=== PATIENT | male | born 1975 | race African-American/Black ===

== ENCOUNTER 2017-10-18 19:54 | Emergency (ER) | payer SELFPAY ==
[~2017-10-18] VITALS: Ht 185.4 cm; Wt 113.9 kg
[2017-10-18] MEDS ORDERED: NKM (20:02)
[2017-10-18] MEDS ORDERED: Ketorolac 30mg Inj IM ONE (20:30)
[2017-10-18] MEDS ORDERED: Cyclobenzaprine 10mg Tab ORAL ONE (20:30)
[2017-10-18] MEDS ORDERED: IBUPROFEN600 MG ORAL (20:37)
[2017-10-18] MEDS ORDERED: CYCLOBENZAPRINE10 MG ORAL (20:37)
[2017-10-18 20:42] VITALS: BP 129/90
[2017-10-18 20:43] VITALS: BP 135/84
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
== END 2017-10-18 20:43 | disposition home or self-care (01) ==
LOC: EMR 20:18
DX: S16.1XXA Strain of muscle, fascia and tendon at neck level, initial encounter (principal); V43.52XA Car driver injured in collision with other type car in traffic accident, initial encounter; Y92.410 Unspecified street and highway as the place of occurrence of the external cause; M54.9 Dorsalgia, unspecified
CPT/HCPCS: 96372; 99284; J1885